=== PATIENT | male | born 1960 | race Caucasian/White ===

== ENCOUNTER → 2018-07-23 14:11 | Outpatient (CLI) | payer OTHER, SELFPAY ==
[2018-07-23 14:54] LABS: PSA,Total - Annual Screen 1.64 ng/mL (0.00-4.00)
== END ==
PROVIDERS: Referring Provider Urology; Visit Provider Urology
DX: Z12.5 Encounter for screening for malignant neoplasm of prostate (principal)
CPT/HCPCS: 36415; 84153; G0103

== ENCOUNTER → 2019-09-30 09:10 | Outpatient (CLI) | payer OTHER, SELFPAY ==
[2017-02-15 12:48] VITALS: BMI 34.9
[2019-09-30 10:54] LABS: ALB/GLOB Ratio 1.1 RATIO (0.9-2.4); AST(SGOT) 22 U/L (15-37); Alanine Aminotransfer ALT/SGPT 36 U/L (16-61); Albumin, Serum 3.9 g/dL (3.2-5.0); Alkaline Phosphatase 98 U/L (45-117); Anion Gap 4 (5-15); BUN 24 mg/dL (7-18); BUN/Creat Ratio 19.4 RATIO (10-20); Calcium,Total 8.6 mg/dL (8.5-10.1); Chloride 106 mmol/L (98-107); Creatinine, Serum 1.24 mg/dL (0.70-1.30); EST Glomerular Filtration Rate 64 mL/min (>60); Est Glom Filt Rate - Afr Amer 77 mL/min (>60); Globulin 3.5 g/dL (2.2-4.2); Glucose 85 mg/dL (74-106); PSA,Total- Diagnostic 0.69 ng/mL (0.0-4.0); Potassium 4.1 mmol/L (3.5-5.1); Protein, Total 7.4 g/dL (6.4-8.2); Sodium Level 136 mmol/L (136-145)
== END ==
PROVIDERS: Referring Provider Urology; Visit Provider Urology
DX: N40.1 Benign prostatic hyperplasia with lower urinary tract symptoms (principal)
CPT/HCPCS: 36415; 80053; 84153; 84403

== ENCOUNTER → 2020-11-30 09:00 | Outpatient (CLI) | payer OTHER, SELFPAY ==
[2017-02-15 12:48] VITALS: BMI 34.9
[2020-11-30 09:48] LABS: PSA,Total - Annual Screen 0.77 ng/mL (0.00-4.00)
== END ==
PROVIDERS: Referring Provider Urology; Visit Provider Urology
DX: Z12.5 Encounter for screening for malignant neoplasm of prostate (principal)
CPT/HCPCS: 36415; 84153; G0103

== ENCOUNTER → 2021-02-08 16:50 | Outpatient (CLI) | payer OTHER, SELFPAY ==
[2017-02-15 12:48] VITALS: BMI 34.9
[2021-02-08 17:30] LABS: Absolute Lymphocyte Count 2.43 X10^3/uL (0.83-4.51); Absolute Neutrophil Count 4.3 X10^3/uL (2.0-7.7); Basophil# 0.12 X10^3/uL; Basophil% 1.5 % (0-1); Eosinophil# 0.23 X10^3/uL; Eosinophils% 2.9 % (0-5); Hematocrit 53.4 % (40-54); Hemoglobin 17.7 g/dL (13.0-16.5); Lymphocyte # 2.43 X10^3/ul (0.83-4.51); Lymphocyte % 30.5 % (19-41); Mean Corp Hgb Conc 33.1 g/dL (32-36); Mean Corpuscular Hgb 29.9 pg (27.0-32.0); Mean Corpuscular Volume 90.4 fL (80-94); Mean Platelet Vol. 11.1 fl (6.2-12.0); Monocyte# 0.86 X10^3/uL; Monocyte% 10.8 % (0-10); NRBC Flagged by Analyzer 0 % (0-5); Neutrophil # 4.32 X10^3/uL (2.7-7.7); Platelet Count 174 K/mm3 (150-450); RBC Distribution Width CV 13.9 % (11.6-14.6); RBC Distribution Width SD 46.5 fl (35.1-43.9); Red Blood Count 5.91 M/mm3 (4.6-6.2)
[2021-02-08 18:20] LABS: ALB/GLOB Ratio 1.2 RATIO (0.9-2.4); AST(SGOT) 12 U/L (15-37); Alanine Aminotransfer ALT/SGPT 16 U/L (16-61); Albumin, Serum 3.7 g/dL (3.2-5.0); Alkaline Phosphatase 105 U/L (45-117); Anion Gap 2 (5-15); BUN 23 mg/dL (7-18); BUN/Creat Ratio 16.9 RATIO (10-20); Chloride 106 mmol/L (98-107); Creatinine, Serum 1.36 mg/dL (0.70-1.30); EST Glomerular Filtration Rate 57 mL/min (>60); Est Glom Filt Rate - Afr Amer 69 mL/min (>60); Globulin 3.2 g/dL (2.2-4.2); Glucose 84 mg/dL (74-106); Potassium 4.1 mmol/L (3.5-5.1); Protein, Total 6.9 g/dL (6.4-8.2); Sodium Level 138 mmol/L (136-145)
== END ==
PROVIDERS: PCP Nurse Practitioner; Referring Provider Nurse Practitioner; Visit Provider Nurse Practitioner
DX: M25.50 Pain in unspecified joint (principal); D75.1 Secondary polycythemia
CPT/HCPCS: 36415; 80053; 85025

== ENCOUNTER 2021-07-09 11:45 | Emergency (ER) | payer OTHER, SELFPAY ==
[2021-07-09 11:46] VITALS: BP 119/81; PULSE 65; RESP 18; TEMP 36.8; O2SAT 94; BMI 32.5
[2021-07-09 11:59] LABS: Bacteria 0 SEEN /hpf (None Seen); Mucous, Urine 0 SEEN /hpf (<or=2+); Red Blood Cells-Urine 0 SEEN /hpf (0-5)
[2021-07-09 12:08] LABS: Color, Urine Yellow (Yellow); Glucose, Dipstick Normal (Normal); Ketone-Dipstick 15 mg/dl (Negative); Leukocyte Esterase-Dipstick 25 /ul (Negative); Nitrite-Dipstick Negative (Negative); Occult Blood-Urine Negative /ul (Negative); Protein-Dipstick 15 mg/dl (Negative); Specific Gravity, Urine 1.025 (1.002-1.030); Urine Clarity Sl. Cloudy (Clear); Urine Urobilinogen 4 mg/dl (Normal)
[2021-07-09 12:11] LABS: Urine Bilirubin Dipstick 1 mg/dL (Negative)
[2021-07-09 12:19] LABS: Squamous Epithelial Cells - UA 0-5 SEEN /hpf (0-5); White Blood Cells 0-5 SEEN /hpf (0-5)
--- NOTE | 2021-07-09 13:42 | CT_ITS ---
STUDY: CT ABDOMEN AND PELVIS WITHOUT CONTRAST REASON FOR EXAM: Male, 60 years old. Right flank pain and left groin pain. History of kidney stones. RADIATION DOSAGE (If Supplied By Facility): CTDIvol = ( 16.88 ) mGy, DLP = ( 814.82 ) mGycm TECHNIQUE: Transaxial images were obtained from the dome of the diaphragm to the symphysis pubis without oral contrast, and without intravenous contrast. Sagittal and coronal images were reconstructed. Individualized dose optimization techniques were used for this CT. COMPARISON: Comparison is made with prior study dated 02/13/2017. FINDINGS: The visualized lung bases are unremarkable. The visualized portions of the heart are within normal limits. Normal liver. Normal gallbladder and extrahepatic biliary system. Normal spleen. Normal pancreas. Normal bilateral adrenal glands. There is a 1.8 cm cyst in the posterior medial aspect of the lower pole of the right kidney. There is also evidence of a one sinus cyst in the anterior medial aspect of the lower pole of the right kidney. Normal left kidney. Normal visualized stomach. Normal small intestine. There are scattered colonic diverticula consistent with diverticulosis. The appendix is visualized and appears normal. There is scattered atherosclerotic calcification of the abdominal aorta, without a demonstrated aneurysm. Normal inferior vena cava. Normal retroperitoneum. Normal urinary bladder. There are prostatic calcifications. Small bilateral inguinal hernias containing fat. There are degenerative changes of the visualized lumbar spine. CT/Abdomen/Pelvis without Cont IMPRESSION: Small cysts in the right kidney. No obstructive uropathy is seen. Electronically Signed: Nicolas Cooper MD at 14:29 EDT , Service support ,
--- NOTE | 2021-07-09 13:42 | EX.ED.DYSGE1 ---
HPI History of Present Illness Chief Complaint: Flank Pain Narrative Narrative: 60-year-old male presenting with right flank pain. He states this started on Monday. He denies recent injury. He has history of previous kidney stones which has felt similar in the past. He denies urinary complaints. Denies fever. Denies other complaints. Prior similar symptoms: Yes Recent Illness/Hospitalization: No PFSH PFSH Medical History (Updated 07/09/21 @ 14:[address] Alondra Sexton MD) Acid reflux Enlarged prostate Hx of renal calculi Osteoarthritis Home Medications esomeprazole magnesium [Nexium] 20 mg PO DAILY 02/13/17 [History Last Taken 02/15/17 08:00] tamsulosin 0.4 mg PO DAILY 14 Days capsule 02/13/17 [Rx Last Taken Unknown] meloxicam 15 mg PO DAILY 07/09/21 [History Last Taken Unknown] Allergy/AdvReac Type Severity Reaction Status Date / Time latex Allergy Hives Verified 07/09/21 11:46 Surgical History (Updated 07/09/21 @ 13:18 by Sangeeta Caldera) History of repair of ACL Social History Smoking Status: Current every day smoker tobacco type: cigarettes ROS ROS ED Constitutional Constitutional ED: Denies fever(s) Eyes Eyes: Denies change in vision ENT ENT ED: Denies rhinorrhea or sore throat Cardiovascular Cardiovascular: Denies chest pain or palpitations Respiratory/Chest Respiratory/Chest: Denies cough or dyspnea Gastrointestinal Gastrointestinal: Denies abdominal pain, diarrhea, nausea or vomiting Genitourinary Genitourinary ED: Denies dysuria or hematuria Musculoskeletal Musculoskeletal: Reports back pain; Denies myalgias Integumentary Denies rash Neurologic Neurologic: Denies headache(s) Psychiatric Psychiatric: Denies suicidal thoughts EXAM Physical Exam Const Vital Signs: 07/09/21 11:46 07/09/21 13:16 07/09/21 13:45 Temperature 98.2 F Temperature Source Temporal Pulse Rate 65 Respiratory Rate 18 16 Respiratory Effort Normal Non-Labored Respiratory Pattern Normal Blood Pressure 119/81 H Blood Pressure Mean 93 Pulse Ox 94 Oxygen Delivery Method Room Air Positive well nourished and well developed General Appearance ED: well developed HEENT Reports normocephalic and head/scalp atraumatic Eyes PERRL and EOMs intact bilaterally Neck supple General: Negative for tenderness Chest Wall inspection of chest normal Resp normal respiratory effort and clear to auscultation bilaterally Cardio regular rate and regular rhythm GI non-tender and non-distended Palpation: soft; Negative for guarding or rebound tenderness present no CVA tenderness Back/Spine General Back: CVA tenderness right Extremity normal to inspection Neuro oriented x3 Sensorium / Orientation: alert Psych mental status grossly normal Skin no rashes or lesions noted MDM MDM MDM Narrative Medical decision making narrative: Patient declined pain medication. Urinalysis shows 0-5 white blood cells, [address] abdomen pelvis shows small cysts in the right kidney, no obstructive uropathy is seen. On reevaluation, patient is resting comfortably and is requesting discharge home. Patient will follow up with his urologist. Advised return to ED for worsening complaints. Lab Data Attestation: I reviewed the patient's lab results. Labs: Laboratory Results - last 24 hr 07/09/21 11:55 Urine Color Yellow Urine Clarity Sl. Cloudy Urine pH 5.0 Ur Specific Arnot 1.025 Urine Protein 15 H Urine Glucose (UA) Normal Urine Ketones 15 H Urine Occult Blood Negative Urine Nitrite Negative Urine Bilirubin 1 H Urine Urobilinogen 4 H Ur Leukocyte Esterase 25 H Urine RBC 0 SEEN Urine WBC 0-5 SEEN Ur Squamous Epith Cells 0-5 SEEN Urine Bacteria 0 SEEN Urine Mucus 0 SEEN Radiography Diagnostic Testing: Clinical Impression(s) from Imaging Studies Abdomen/Pelvis CT 07/09/21 13:42 IMPRESSION: Small cysts in the right kidney. No obstructive uropathy is seen. Electronically Signed: Nicolas Cooper MD at 14:29 EDT , Service support , Discharge Plan Triage Chief Complaint: Flank Pain ED Provider: Alondra Sexton Dx/Rx/DC Orders Clinical Impression: Acute flank pain Instructions: ED Flank Pain, Uncertain Cause Prescriptions: No Action esomeprazole magnesium [Nexium] 40 MG capsule 20 mg PO DAILY RF: 0 tamsulosin 0.4 MG capsule 0.4 mg PO DAILY 14 Days RF: 0 meloxicam 15 mg tablet 15 mg PO DAILY RF: 0 Primary Care Provider: Brittani Cortes NP Referrals: Yoseph Lindsay MD [STAFF PHYSICIAN] - Brittani Cortes NP, [facility] [Primary Care Provider] - Disposition Disposition: Home, Self Care
[2021-07-09 13:45] VITALS: RESP 16
[2021-07-09 15:06] VITALS: PULSE 87; RESP 18; O2SAT 96
== END 2021-07-09 15:07 | disposition home or self-care (01) ==
PROVIDERS: Emergency Provider Emergency Medicine; PCP Nurse Practitioner
DX: R10.9 Unspecified abdominal pain (principal); M54.9 Dorsalgia, unspecified; M19.90 Unspecified osteoarthritis, unspecified site; N40.0 Benign prostatic hyperplasia without lower urinary tract symptoms; K21.9 Gastro-esophageal reflux disease without esophagitis; F17.210 Nicotine dependence, cigarettes, uncomplicated; Z79.1 Long term (current) use of non-steroidal anti-inflammatories (NSAID); Z79.899 Other long term (current) drug therapy; Z87.442 Personal history of urinary calculi
CPT/HCPCS: 74176; 81001; 99283

== ENCOUNTER 2021-12-27 09:04 | Outpatient (CLI) | payer OTHER, SELFPAY ==
[2021-12-27 10:52] LABS: PSA,Total - Annual Screen 0.75 ng/mL (0.00-4.00)
== END 2021-12-27 23:59 | disposition home or self-care (01) ==
LOC: LAB 09:05
PROVIDERS: PCP Nurse Practitioner; Referring Provider Urology; Visit Provider Urology
DX: Z12.5 Encounter for screening for malignant neoplasm of prostate (principal)
CPT/HCPCS: 36415; 84153; G0103

== ENCOUNTER 2022-01-12 11:56 | Outpatient (CLI) | payer OTHER, SELFPAY ==
[2022-01-12 07:50] VITALS: BP 137/80; PULSE 67; RESP 18; TEMP 36.5; O2SAT 98; BMI 31.9
--- NOTE | 2022-01-12 11:59 | CT_ITS ---
STUDY: CT LUMBAR SPINE WITH CONTRAST REASON FOR EXAM: Male, 61 years old. [facility] RADIATION DOSAGE (If Supplied By Facility): CTDIvol = ( 18.14 ) mGy, DLP = ( 604.07 ) mGycm TECHNIQUE: The patient was scanned in a multi detector CT scanner. High resolution transaxial imaging was performed following the intravenous administration of 12 ML ISOVUE 200. Images were obtained throughout the lumbar spine. Sagittal and coronal images were reconstructed. Individualized dose optimization techniques were used for this CT. COMPARISON: Lumbar spine x-ray obtained on 01/12/2022 FINDINGS: Unremarkable alignment of the columns of the lumbar spine is visualized. No evidence of spondylolisthesis is seen. Lumbar vertebral bodies demonstrate no evidence of compression deformity, multilevel degenerative endplate changes visualized most prominent involving the inferior endplate of the L1 vertebral body. Unremarkable opacification of the thecal sac is seen, no evidence of contrast extravasation outside the contours of the thecal sac. Multiple air bubbles visualized within the thecal sac most likely iatrogenic from the contrast injection. Limited evaluation of the abdominal soft tissues is unremarkable. The terminal cord demonstrates unremarkable contours, the cord terminates at the level of the T12-L1 intervertebral disc space, no evidence of masses or abnormal attenuation seen. The terminal nerve fibers demonstrate unremarkable contours, no evidence of thickening or clumping of the nerve roots is seen. L1-2: Degenerative intervertebral disc with mild hypertrophic changes of the facet joints is seen, mild narrowing of the spinal canal, mild to moderate narrowing of the right neural foramina and severe narrowing of the left neuroforamina seen at this level. L2-3: Circumferential disc bulges hypertrophic changes in the facet joints and ligamentum flavum visualized at this level, mild narrowing of the spinal canal with moderate to severe narrowing of the right neural foramina and severe narrowing of the left neuroforamina seen at this level. L3-4: Circumferential disc bulge with hypertrophic changes in the facet joints and ligamentum flavum visualized at this level, moderate narrowing of the spinal canal with moderate to severe narrowing of the right neural foramina and moderate to severe narrowing of the left neuroforamina seen at this level. L4-5: Circumferential disc bulge with hypertrophic changes in the facet joints and ligamentum flavum visualized at this level, moderate narrowing of the spinal canal with severe narrowing of the right neural foramina and severe narrowing of the left neuroforamina seen at this level. L5-S1: Circumferential disc bulge with hypertrophic changes in the facet joints and ligamentum flavum visualized at this level, mild narrowing of the spinal canal with severe narrowing of the right neural foramina and severe narrowing of the left neuroforamina seen at this level. Normal visualized paraspinous soft tissue structures. CT/Spine Lumbar WITH Contrast IMPRESSION: Degenerative changes of the lumbar spine visualized, multilevel degenerative intervertebral disc disease visualized, with narrowing of the spinal canal most prominent at L4-L5 and L3-L4 and narrowing of the neural foramina visualized at multiple levels. Electronically Signed: Will Morataya MD at 14:26 EDT ,
--- NOTE | 2022-01-12 12:15 | RAD_ITS ---
FLUOROSCOPICALLY GUIDED LUMBAR MYELOGRAM HISTORY: The patient is a 61 years year old Male who presented with low back pain. CONSENT: Risks, benefits, treatment options, potential complications and personnel to be involved were discussed (including the risks of radiation exposure, contrast and anesthesia administration, and any equipment needed for the procedure to ensure best possible outcome) with the patient and all questions were answered and consent was obtained prior to procedure. MEDICATION RECONCILIATION: The patient''s medications and allergies were reviewed in the electronic medical record and reconciled to the proposed procedure/treatment. TIME OUT: An audible time out was performed immediately prior to the start of the procedure with the entire procedure team to confirm the patient''s identity (name, medical record number), anatomy (including marking of site and side), type of procedure to be performed, patient position, procedure consent form, relevant diagnostic and radiology test results, antibiotic administration, safety precautions, and procedure-specific equipment was present. ANESTHESIA: Local anesthesia: 1% Lidocaine was administered. IMAGE GUIDANCE: Fluoroscopic and sonographic guidance was used. Ultrasound demonstrated patency of the target vein without filling defects. Access was obtained under direct sonographic visualization. A sonographic image of the vessel was obtained and placed into the permanent archive for documentation. FLUOROSCOPIC RADIATION SUMMARY: 10 images were obtained. Dose Area Product (DAP): Fluoro Time: 2:38 minutes Radiation dose exceed 5 Gy: No If radiation dose exceeded 5 Gy, was counseling and instructional brochure provided:N/A POSITIONING: The patient was placed prone on the fluoroscopy table. The paraspinal region was then prepped and draped in the usual sterile fashion. PROCEDURE DETAILS: Counting reference: Lumbosacral junction. For the purposes of this report, L5-S1 is considered the last lumbar type disc space and L4-5 is considered the level of the iliac crest. Access Site: 22 gauge spinal needle from a Right paramedian approach at the L2-L3 Level. Procedure Details: Using sterile procedure, local anesthesia was introduced to the skin and subcutaneous tissues as outlined above. Under fluoroscopic guidance, the needle was carefully advanced into the lumbar subarachnoid space resulting in free flow of CSF. 12 cc of ISOVUE-200 were instilled into the thecal sac after which the needle was removed, manual compression was applied after which a sterile dressing was applied. Fluoroscopic images of the opacified thecal sac were obtained in multiple projections after which the patient was sent to the CT scan suite for a CT myelogram. The patient tolerated the procedure well with no immediate complications. RAD/Lumbar Myelogram IMPRESSION: Lumbar myelogram under fluoroscopy. Electronically Signed: Will Morataya MD at 14:10 EDT ,
[2022-01-12] MEDS: Lidocaine 2% (5ml sdv) 5 ML VIAL.MPF INFILT (13:09)
[2022-01-12 13:25] VITALS: BP 132/85; PULSE 64; RESP 18; O2SAT 98
[2022-01-12 14:00] VITALS: BP 134/89; PULSE 65; RESP 16; O2SAT 98
== END 2022-01-12 23:59 | disposition home or self-care (01) ==
LOC: RAD 11:56
PROVIDERS: PCP Nurse Practitioner; Referring Provider Orthopaedic Surgery; Visit Provider Orthopaedic Surgery
DX: M48.061 Spinal stenosis, lumbar region without neurogenic claudication (principal); M47.816 Spondylosis without myelopathy or radiculopathy, lumbar region; M51.36 Other intervertebral disc degeneration, lumbar region
CPT/HCPCS: 62304; 72132; Q9965

== ENCOUNTER → 2022-08-15 | Outpatient (CLI) | payer OTHER, SELFPAY ==
[2022-08-15 12:21] LABS: Absolute Lymphocyte Count 1.56 X10^3/uL (0.83-4.51); Absolute Neutrophil Count 3.1 X10^3/uL (2.0-7.7); Basophil# 0.09 X10^3/uL; Basophil% 1.6 % (0-1); Eosinophil# 0.12 X10^3/uL; Eosinophils% 2.1 % (0-5); Hemoglobin 17.7 g/dL (13.0-16.5); Lymphocyte # 1.56 X10^3/ul (0.83-4.51); Lymphocyte % 27.9 % (19-41); Mean Corp Hgb Conc 33.4 g/dL (32-36); Mean Corpuscular Hgb 30.8 pg (27.0-32.0); Mean Corpuscular Volume 92.2 fL (80-94); Monocyte# 0.67 X10^3/uL; NRBC Flagged by Analyzer 0 % (0-5); Neutrophil # 3.14 X10^3/uL (2.7-7.7); Neutrophil % 56.2 % (47-70); Platelet Count 155 K/mm3 (150-450); RBC Distribution Width CV 13.4 % (11.6-14.6); RBC Distribution Width SD 45.7 fl (35.1-43.9); Red Blood Count 5.75 M/mm3 (4.6-6.2); White Blood Count 5.6 K/mm3 (4.4-11.0)
[2022-08-15 12:44] LABS: ALB/GLOB Ratio 1.2 RATIO (0.9-2.4); AST(SGOT) 15 U/L (15-37); Alanine Aminotransfer ALT/SGPT 21 U/L (16-61); Albumin, Serum 3.7 g/dL (3.2-5.0); Alkaline Phosphatase 78 U/L (45-117); Anion Gap 7 (5-15); BUN 20 mg/dL (7-18); BUN/Creat Ratio 21.1 RATIO (10-20); Calcium,Total 8.6 mg/dL (8.5-10.1); Chloride 103 mmol/L (98-107); Cholesterol 136 mg/dL (200); Creatinine, Serum 0.95 mg/dL (0.70-1.30); EST Glomerular Filtration Rate 86 mL/min (>60); Est Glom Filt Rate - Afr Amer 104 mL/min (>60); Globulin 3.2 g/dL (2.2-4.2); Glucose 89 mg/dL (74-106); High Density Lipoprotein 45 mg/dL; Potassium 4.2 mmol/L (3.5-5.1); Protein, Total 6.9 g/dL (6.4-8.2); Sodium Level 137 mmol/L (136-145); Triglycerides 59 mg/dL; Very Low Density Lipoprotein 12 mg/dL (5-40)
== END | disposition home or self-care (01) ==
LOC: BIMLAB 09:35
PROVIDERS: PCP Nurse Practitioner; Visit Provider Internal Medicine
DX: N40.0 Benign prostatic hyperplasia without lower urinary tract symptoms (principal); Z13.6 Encounter for screening for cardiovascular disorders
CPT/HCPCS: 36415; 80053; 80061; 85025

== ENCOUNTER 2022-09-12 15:12 | Emergency (ER) | payer OTHER, SELFPAY ==
[2022-09-12 15:14] VITALS: BP 138/86; PULSE 79; RESP 18; TEMP 37.2; O2SAT 99; BMI 30.5
--- NOTE | 2022-09-12 15:50 | RAD_ITS ---
INDICATION: COUGH EXAMINATION/TECHNIQUE: X-RAY - XR Chest 1 View COMPARISON: None. FINDINGS: LINES/DEVICES: None. LUNGS: Mild coarsening of lung markings in the lower lobes possibly inflammatory. No focal infiltration.. No pneumothorax. MEDIASTINUM AND CARDIOVASCULAR STRUCTURES: Cardiac silhouette not enlarged. Central airways and mediastinal contour are unremarkable. BONES AND SOFT TISSUES: Unremarkable. RAD/Chest 1 View (Portable) IMPRESSION: Mild coarsening of interstitial markings in the lower lobes possibly inflammatory. No focal infiltrates. Electronically Signed: Scot Gutierrez MD at 16:18 EST ,
[2022-09-12 16:06] VITALS: BP 128/86; PULSE 73; RESP 22; O2SAT 96
--- NOTE | 2022-09-12 16:19 | ED.VIS.DYS ---
HPI History of Present Illness Chief Complaint: Cold Sx Narrative Narrative: 62-year-old smoker, history of chronic low back pain states he has been sick for 3 weeks. He was diagnosed with COVID-19 a week ago Monday. He states he finished 5 days of steroids but still has shortness of breath, fatigue, myalgias and arthralgias. He has low back pain with this also. He continues to smoke cigarettes although he states he only smoked 2 cigarettes today. He had mild nausea and vomiting. He presents because he feels fatigued, tired, and short of breath. [facility] Medical History Acid reflux Chronic pain COVID-19 Enlarged prostate History of back problems History of neuropathy Hx of carpal tunnel syndrome Hx of renal calculi Osteoarthritis Smoker Wears glasses Home Medications esomeprazole magnesium 40 mg capsule,delayed release (Nexium) 20 mg PO DAILY 02/13/17 [History Last Taken 02/15/17 08:00] tamsulosin 0.4 mg capsule 0.4 mg PO DAILY 14 days 02/13/17 [Rx Last Taken Unknown] aspirin 81 mg capsule 81 mg PO DAILY 01/12/22 [History Last Taken Unknown] clobetasol 0.05 % topical ointment 1 applic topical BID #15 grams 08/15/22 [Rx Last Taken Unknown] meloxicam 15 mg tablet 15 mg PO DAILY #30 tabs 08/15/22 [Rx Last Taken Unknown] benzonatate 200 mg capsule 200 mg PO TID PRN cough #30 caps 09/05/22 [Rx Last Taken Unknown] dexamethasone 6 mg tablet 6 mg PO DAILY #5 tabs 09/05/22 [Rx Last Taken Unknown] Allergy/AdvReac Type Severity Reaction Status Date / Time latex Allergy Hives Verified 09/12/22 15:16 Family History Grandfather Diabetes Brother Diabetes Brother Kidney disease Surgical History H/O lithotripsy History of knee surgery History of myelography History of repair of ACL History of tonsillectomy History of tooth extraction Social History household members: significant other current occupational status: employed current occupation: owns semi-trucks Smoking Status: Current every day smoker tobacco type: cigarettes Electronic Cigarette Use: not used alcohol intake: current alcohol intake frequency: holidays/special occasions only substance use type: does not use and former substance user Date of last use: marijuana as a teenager do you feel safe at home: Yes ROS ROS ED ROS Narrative Constitutional: No fever currently, no chills. Positive malaise and fatigue. HEENT: No sore throat. No neck pain. No loss of vision. No rhinorrhea. Cardiovascular: No chest pain. No palpitations. No pedal edema. Respiratory: Positive cough, positive shortness of breath. Abdominal: No abdominal pain. Positive nausea and vomiting-resolved Genitourinary: No dysuria. No hematuria. Musculoskeletal: Multiple myalgias and arthralgias especially low back pain with history of chronic. Neurologic: No headaches. No dizziness. No lightheadedness. Skin: No rash. No change in color. Psychiatric: No depression. No anxiety. EXAM Physical Exam Narrative Exam Narrative: Afebrile. Vital signs noted. HEENT: Normocephalic. Atraumatic. PERRL, EOMI. Neck soft and supple. No point tenderness or step off. Cardiovascular: Regular rate and rhythm. No murmurs, rubs, or gallops appreciated. Respiratory: No tachypnea. Bilateral rhonchi diffusely. No distress. No accessory muscle use. Speaking in full sentences. Gastrointestinal: Abdomen soft, nontender, with normoactive bowel sounds. No rebound or guarding. Neurological: Awake. Alert. Nonfocal, nonlateralizing. Skin: No rash. Normal color. No pallor. Musculoskeletal: No pedal edema. Full range of motion extremities. Const Vital Signs: 09/12/22 15:14 09/12/22 16:04 09/12/22 16:06 Temperature 98.9 F Temperature Source Temporal Pulse Rate 79 73 Respiratory Rate 18 22 H Respiratory Effort Normal Short of Breath Labored Respiratory Depth Shallow Respiratory Pattern Normal Blood Pressure 138/86 H 128/86 H Blood Pressure Mean 103 100 Pulse Ox 99 96 Oxygen Delivery Method Room Air Room Air MDM MDM MDM Narrative Medical decision making narrative: Nursing protocol was entered. Chest x-ray was obtained and interpreted by myself. There is increase of interstitial markings but no evidence of a consolidation or pneumothorax. His pulse ox is 96 to 99% on room air. I reviewed his medication list and he had finished dexamethasone. I discussed smoking cessation with him but he states he has no plans on quitting smoking. I will write him a prescription for a prednisone burst for another week and a prescription for an albuterol MDI. Treatment will be symptomatic. His COVID and influenza swabs are pending, but regardless, I do feel that this may be more residual COVID. Additionally, even if it were influenza A he is outside the window for any Tamiflu or Relenza. I was informed by the RN that while I was with another patient performing a procedure, patient had eloped prior to the results of his respiratory swab. Disposition is eloped from emergency department. Patient was in stable condition. Radiography Diagnostic Testing: Clinical Impression(s) from Imaging Studies Chest X-Ray 09/12/22 15:50 IMPRESSION: Mild coarsening of interstitial markings in the lower lobes possibly inflammatory. No focal infiltrates. Electronically Signed: Scot Gutierrez MD at 16:18 EST Reading Location ID and State: [facility] / [place] , Service support , Discharge Plan Triage Chief Complaint: Cold Sx Other Complaint: Fatigue ED Provider: Fidencio Mercado Dx/Rx/DC Orders Clinical Impression: COVID-19, Smoker Instructions: Coronavirus Disease 2019 (COVID-19): Caring for Yourself or Others, ED Bronchitis, No Antibiotic (Adult) Prescriptions: No Action meloxicam 15 mg tablet 15 mg PO DAILY Qty: 30 0RF clobetasol 0.05 % ointment 1 applic topical BID Qty: 15 0RF benzonatate 200 mg capsule 200 mg PO TID PRN (Reason: cough) Qty: 30 0RF dexamethasone 6 mg tablet 6 mg PO DAILY Qty: 5 0RF esomeprazole magnesium [Nexium] 40 MG capsule 20 mg PO DAILY Label Comments: HEARTBURN tamsulosin 0.4 MG capsule 0.4 mg PO DAILY 14 Days 0RF Label Comments: URINE FLOW aspirin 81 mg Capsule 81 mg PO DAILY Primary Care Provider: Carla Moran Referrals: Carla Moran MD [Primary Care Provider] - Disposition Disposition: Elopement Discharge Date/Time: 09/12/22 17:31
--- NOTE | 2022-09-12 17:26 | ED.RN ---
PATIENTS S.O IN HALLWAY ASKING FOR DISCHARGE PAPERWORK, MEDICATION TO BE SENT TO PHARMACY OR THE PATIENT WILL WALK OUT. DR. COOPER NOTIFIED.
--- NOTE | 2022-09-12 17:31 | ED.RN ---
PATIENT HAS WALKED OUT. DR. COOPER NOTIFIED
== END 2022-09-12 17:31 | disposition left against medical advice (07) ==
LOC: ED 16:47
PROVIDERS: Emergency Provider Emergency Medicine; PCP Internal Medicine; Visit Provider Emergency Medicine
DX: R11.2 Nausea with vomiting, unspecified (principal); R06.02 Shortness of breath; R53.83 Other fatigue; F17.210 Nicotine dependence, cigarettes, uncomplicated; Z86.16 Personal history of COVID-19
CPT/HCPCS: 71045; 87428; 99282

== ENCOUNTER → 2023-01-09 | Outpatient (CLI) | payer OTHER, SELFPAY ==
[2023-01-09 10:19] LABS: PSA,Total - Annual Screen 0.71 ng/mL (0.00-4.00)
== END | disposition home or self-care (01) ==
LOC: LAB 09:27
PROVIDERS: PCP Internal Medicine; Referring Provider Registered Nurse; Visit Provider Registered Nurse
DX: Z12.5 Encounter for screening for malignant neoplasm of prostate (principal)
CPT/HCPCS: 36415; 84153; G0103

== ENCOUNTER 2023-01-14 10:16 | Emergency (ER) | payer OTHER, SELFPAY ==
[2023-01-14 10:17] VITALS: BP 148/86; PULSE 79; RESP 15; TEMP 36.3; O2SAT 95; BMI 30.5
--- NOTE | 2023-01-14 11:02 | ED.VIS.LOWEX ---
HPI <DELVIN Duque - Last Filed: 01/14/23 20:36> History of Present Illness Chief Complaint: Lower Extremity Injury Narrative Narrative: Patient presenting today with lower back pain and bilateral lower extremity pain that has progressively worsened over the past year. Patient states that he has had chronic lower back pain and sciatica since 1983. 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 He is worried that he has a blood clot in his calves bilaterally and that is why he has this pain. He denies any history of blood clots. Patient was told 1 year ago by his orthopedic doctor that he needed to have surgery on his back due to defective discs and lumbar spine, arthritis, and sciatica. Patient is unable to have the surgery performed or go to due to his work. He denies any fever, bowel/bladder incontinence, saddle paresthesia, numbness/tingling in his lower extremities. PFS <DELVIN Duque - Last Filed: 01/14/23 20:36> [facility], [facility] Medical History Acid reflux Chronic pain COVID-19 Enlarged prostate History of back problems History of neuropathy Hx of carpal tunnel syndrome Hx of renal calculi Osteoarthritis Smoker Wears glasses Home Medications esomeprazole magnesium 40 mg capsule,delayed release (Nexium) 20 mg PO DAILY 02/13/17 [History Last Taken 02/15/17 08:00] tamsulosin 0.4 mg capsule 0.4 mg PO DAILY 14 days 02/13/17 [Rx Last Taken Unknown] aspirin 81 mg capsule 81 mg PO DAILY 01/12/22 [History Last Taken Unknown] clobetasol 0.05 % topical ointment 1 applic topical BID #15 grams 08/15/22 [Rx Last Taken Unknown] meloxicam 15 mg tablet 15 mg PO DAILY #30 tabs 10/10/22 [Rx Last Taken Unknown] amitriptyline 25 mg tablet 25 mg PO QHS #30 tabs 11/21/22 [Rx Last Taken Unknown] prednisone 20 mg tablet 40 mg PO DAILY 10 days #20 tabs 01/14/23 [Rx Last Taken Unknown] Allergy/AdvReac Type Severity Reaction Status Date / Time latex Allergy Hives Verified 01/14/23 10:19 Family History Grandfather Diabetes Brother Diabetes Brother Kidney disease Surgical History H/O lithotripsy History of knee surgery History of myelography History of repair of ACL History of tonsillectomy History of tooth extraction Social History household members: significant other current occupational status: employed current occupation: owns [employer] Smoking Status: Current every day smoker tobacco type: cigarettes Electronic Cigarette Use: not used alcohol intake: current alcohol intake frequency: holidays/special occasions only substance use type: does not use and former substance user Date of last use: marijuana as a teenager do you feel safe at home: Yes ROS <DELVIN Duque - Last Filed: 01/14/23 20:36> ROS ED Constitutional Constitutional ED: Denies chills or fever(s) Eyes Eyes: Denies blurry vision Cardiovascular Cardiovascular: Denies chest pain or palpitations Respiratory/Chest Respiratory/Chest: Denies cough or dyspnea Gastrointestinal Gastrointestinal: Denies abdominal pain, nausea or vomiting Genitourinary Genitourinary ED: Denies dysuria, hematuria or urinary urgency Musculoskeletal Musculoskeletal: Reports arthralgias, back pain and myalgias Integumentary Denies abscess, Abrasions or rash Neurologic Neurologic: Denies paresthesias or weakness Psychiatric Psychiatric: Denies anxiety, depression, suicidal ideation or suicidal thoughts EXAM <DELVIN Duque - Last Filed: 01/14/23 20:36> Physical Exam Const Vital Signs: 01/14/23 10:17 Temperature 97.4 F L Temperature Source Temporal Pulse Rate 79 Respiratory Rate 15 Blood Pressure 148/86 H Blood Pressure Mean 106 Pulse Ox 95 Oxygen Delivery Method Room Air Positive well nourished, well developed and no apparent distress General Appearance ED: well developed HEENT Reports normocephalic and head/scalp atraumatic Mouth ED: Yes moist mucous membranes normal Eyes PERRL and EOMs intact bilaterally Neck full ROM and supple Chest Wall inspection of chest normal Resp normal respiratory effort and clear to auscultation bilaterally Cardio regular rate and regular rhythm GI soft to palpation, non-tender, non-distended and no masses Back/Spine normal ROM and normal to inspection Extremity normal to inspection and full ROM Neuro oriented x3, CN's II-XII intact bilaterally, moves all extremities, no focal motor deficits and no sensory deficits noted Sensorium / Orientation: awake and alert Motor Exam: strength 5/5 throughout Psych mental status grossly normal and thought process normal Skin no rashes or lesions noted and no wounds <Dr. Maninder Hernández MD - Last Filed: 01/14/23 11:26> Physical Exam Const Vital Signs: 01/14/23 10:17 Temperature 97.4 F L Temperature Source Temporal Pulse Rate 79 Respiratory Rate 15 Blood Pressure 148/86 H Blood Pressure Mean 106 Pulse Ox 95 Oxygen Delivery Method Room Air MDM <DELVIN Duque - Last Filed: 01/14/23 20:36> [facility] Narrative Medical decision making narrative: Patient presenting today with concerns that he has a DVT. However, patient has chronic lower back pain as well as sciatica. 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 I do not think the patient has a DVT, I think it is more likely that patient's pain is related to his back. Patient was advised to start physical therapy or to undergo surgery of his lumbar spine but is unable to do this due to his job. Patient had a CT myelogram which showed multilevel lumbar degenerative disc disease and narrowing of the spinal formula and spinal canal. He is to follow-up with his specialist again. He does not want any pain medication. He will be given prednisone. Ultimately, patient does need to undergo PT as well as undergo surgery. I have personally performed a face to face assessment of the patient and have reviewed the ELI Note. I performed a substantive portion of the visit including all aspects of the following. My zapata findings include: History is [62-year-old male with acute on chronic low back pain with radiation to his legs. Said a work-up in the past including a CT myelogram which showed multilevel lumbar degenerative disc disease and narrowing of the spinal foramina and spinal canal. He is seen Dr. Grullon of spine was discussed with him the eventual need of a lumbar surgery which the patient is trying to avoid because he works as a truck mechanic. He denies any weakness. He denies any bowel or bladder incontinence or retention. No fever or fall.] Exam is [exam is benign. Vital signs are stable afebrile. Lungs are clear. Heart regular rhythm. Abdomen soft. Back he has tenderness over his lumbar spine and his SI joints. There is no redness or warmth. No trauma. Both lower extremities are neurovascularly intact. There is no cauda equina. No saddle anesthesia. Normal medial thigh sensation. Normal dorsi and plantarflexion. Normal motor strength.] Medical Decision Making [patient has acute on chronic back pain. He does not have signs of claudication. I explained he and his he did not need ultrasound of his legs to rule out DVT. He will be started on prednisone 40 mg a day. See if that will help his back pain. He has appointment see his primary care physician. He needs to start physical therapy. And follow-up with a credit collection specialist. 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 He does not want to be placed on anything that would make it or cannot drive.] Other additions or changes: [None] <Dr. Maninder Hernández MD - Last Filed: 01/14/23 11:26> [facility] Narrative Medical decision making narrative: I have personally performed a face to face assessment of the patient and have reviewed the ELI Note. I performed a substantive portion of the visit including all aspects of the following. My zapata findings include: History is [62-year-old male with acute on chronic low back pain with radiation to his legs. Said a work-up in the past including a CT myelogram which showed multilevel lumbar degenerative disc disease and narrowing of the spinal foramina and spinal canal. He is seen Dr. Grullon of spine was discussed with him the eventual need of a lumbar surgery which the patient is trying to avoid because he works as a truck mechanic. He denies any weakness. He denies any bowel or bladder incontinence or retention. No fever or fall.] Exam is [exam is benign. Vital signs are stable afebrile. Lungs are clear. Heart regular rhythm. Abdomen soft. Back he has tenderness over his lumbar spine and his SI joints. There is no redness or warmth. No trauma. Both lower extremities are neurovascularly intact. There is no cauda equina. No saddle anesthesia. Normal medial thigh sensation. Normal dorsi and plantarflexion. Normal motor strength.] Medical Decision Making [patient has acute on chronic back pain. He does not have signs of claudication. I explained he and his he did not need ultrasound of his legs to rule out DVT. He will be started on prednisone 40 mg a day. See if that will help his back pain. He has appointment see his primary care physician. He needs to start physical therapy. And follow-up with a credit collection specialist. 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 He does not want to be placed on anything that would make it or cannot drive.] Other additions or changes: [None] Discharge Plan Triage Chief Complaint: Lower Extremity Injury ED Midlevel Provider: Tiffany Hamilton ED Provider: Maninder Hernández Dx/Rx/DC Orders Clinical Impression: Sciatica, Chronic low back pain Instructions: ED Sciatica Prescriptions: New prednisone 20 mg tablet 40 mg PO DAILY 10 Days Qty: 20 0RF No Action clobetasol 0.05 % ointment 1 applic topical BID Qty: 15 0RF meloxicam 15 mg tablet 15 mg PO DAILY Qty: 30 1RF esomeprazole magnesium [Nexium] 40 MG capsule 20 mg PO DAILY Label Comments: [facility]URN tamsulosin 0.4 MG capsule 0.4 mg PO DAILY 14 Days 0RF Label Comments: URINE FLOW aspirin 81 mg Capsule 81 mg PO DAILY amitriptyline 25 mg tablet 25 mg PO QHS Qty: 30 1RF Primary Care Provider: Carla Moran Referrals: Carla Moran MD [Primary Care Provider] - 5-7 Days Activity Restrictions/Additional Instructions: Hold the meloxicam while taking prednisone. Please follow-up with your orthopedic doctor. Disposition Disposition: Home, Self Care Discharge Date/Time: 01/14/23 11:26
== END 2023-01-14 11:26 | disposition home or self-care (01) ==
PROVIDERS: Emergency Provider Emergency Medicine; PCP Internal Medicine; Visit Provider Emergency Medicine
DX: M51.16 Intervertebral disc disorders with radiculopathy, lumbar region (principal); M48.061 Spinal stenosis, lumbar region without neurogenic claudication; G89.29 Other chronic pain; K21.9 Gastro-esophageal reflux disease without esophagitis; M19.90 Unspecified osteoarthritis, unspecified site; F17.210 Nicotine dependence, cigarettes, uncomplicated; Z79.82 Long term (current) use of aspirin; Z79.1 Long term (current) use of non-steroidal anti-inflammatories (NSAID); Z79.899 Other long term (current) drug therapy
CPT/HCPCS: 99282

== ENCOUNTER → 2023-01-30 | Outpatient (CLI) | payer OTHER, SELFPAY ==
[2023-01-30 11:04] LABS: Erythrocyte Sedimentation Rate 7 mm/hr (0-20)
[2023-01-30 11:06] LABS: Absolute Lymphocyte Count 1.78 X10^3/uL (0.83-4.51); Absolute Neutrophil Count 5.6 X10^3/uL (2.0-7.7); Basophil% 1.2 % (0-1); Eosinophil# 0.17 X10^3/uL; Hematocrit 54.3 % (40-54); Lymphocyte # 1.78 X10^3/ul (0.83-4.51); Lymphocyte % 20.7 % (19-41); Mean Corp Hgb Conc 33.3 g/dL (32-36); Mean Corpuscular Hgb 30.2 pg (27.0-32.0); Mean Corpuscular Volume 90.7 fL (80-94); Mean Platelet Vol. 11.3 fl (6.2-12.0); Monocyte# 0.86 X10^3/uL; NRBC Flagged by Analyzer 0 % (0-5); Neutrophil # 5.64 X10^3/uL (2.7-7.7); Neutrophil % 65.6 % (47-70); Platelet Count 142 K/mm3 (150-450); RBC Distribution Width CV 13.6 % (11.6-14.6); RBC Distribution Width SD 45.5 fl (35.1-43.9); Red Blood Count 5.99 M/mm3 (4.6-6.2); White Blood Count 8.6 K/mm3 (4.4-11.0)
[2023-01-30 11:09] LABS: D-Dimer Quantitative (DVT/PE) 0.32 FEU/ug/m (0.27-0.49)
[2023-01-30 11:20] LABS: Differential Indicated SCAN CRITERIA MET; Hemoglobin 18.1 g/dL (13.0-16.5)
[2023-01-30 11:41] LABS: ALB/GLOB Ratio 1.2 RATIO (0.9-2.4); AST(SGOT) 18 U/L (15-37); Alanine Aminotransfer ALT/SGPT 26 U/L (16-61); Albumin, Serum 3.6 g/dL (3.2-5.0); Alkaline Phosphatase 85 U/L (45-117); Anion Gap 6 (5-15); BUN 22 mg/dL (7-18); BUN/Creat Ratio 22.1 RATIO (10-20); CRP < 2.90 mg/L (0.0-3.0); Calcium,Total 8.6 mg/dL (8.5-10.1); Chloride 105 mmol/L (98-107); EST Glomerular Filtration Rate 81 mL/min (>60); Est Glom Filt Rate - Afr Amer 98 mL/min (>60); Globulin 3.1 g/dL (2.2-4.2); Glucose 105 mg/dL (74-106); Potassium 3.9 mmol/L (3.5-5.1); Protein, Total 6.7 g/dL (6.4-8.2); Rheumatoid Factor < 10.0 IU/mL (<15); Sodium Level 136 mmol/L (136-145)
[2023-01-31 12:09] LABS: CCP IgG Antibodies 4 units (0-19)
[2023-01-31 13:08] LABS: ANTINUCLEAR ANTIBODIES DIRECT Negative (Negative); Anti-Centromere B Ab <0.2 AI (0.0-0.9); Anti-Chromatin <0.2 AI (0.0-0.9); Anti-Jo <0.2 AI (0.0-0.9); Anti-Scleroderma-70 AB <0.2 AI (0.0-0.9); Anti-dsDNA Ab 2 IU/mL (0-9); RNP Ab <0.2 AI (0.0-0.9); SJOGREN'S Anti-SS-A test 0.3 AI (0.0-0.9); SJOGREN'S Anti-SS-B test 0.2 AI (0.0-0.9); Smith Ab <0.2 AI (0.0-0.9)
[2023-02-02 09:49] LABS: Pathologist Review Reviewed
[2023-02-05 16:07] LABS: Erythropoietin 6.2 mIU/mL (2.6-18.5)
== END | disposition home or self-care (01) ==
LOC: LAB 09:40
PROVIDERS: PCP Internal Medicine; Referring Provider Internal Medicine; Visit Provider Internal Medicine
DX: M25.50 Pain in unspecified joint (principal); D58.2 Other hemoglobinopathies; D69.6 Thrombocytopenia, unspecified
CPT/HCPCS: 36415; 80053; 81270; 82668; 85025; 85379; 85652; 86038; 86140; 86200; 86225; 86235; 86431

== ENCOUNTER → 2023-02-07 | Outpatient (CLI) | payer OTHER, SELFPAY ==
--- NOTE | 2023-02-07 17:15 | CT_ITS ---
INDICATION: progressing pain, chronic lower back pain, unable to have MRI-patient has metal in body EXAMINATION: CT lumbar SPINE - CT Spine Lumbar W/ Contrast Injection COMPARISON: 01/12/[address] A radiation dose optimization technique was used for this scan. Findings: Contrast enhanced serial CT axial images through the lumbar spine, with coronal and sagittal reformatted series. IV contrast: 98 cc Isovue-300 IV. BONES: No evidence of lumbar spine fracture or subluxation. No concerning bony lesion or abnormal sclerosis to suggest lesion. DISCS/JOINTS: Moderate to severe posterior lower lumbar degenerative change. No significant neuroforaminal narrowing. However, there is severe L4-L5 central bony spinal canal stenosis secondary to posterior disc osteophyte formation, which appears worsened from previous year. SOFT TISSUES: Simple fluid attenuating right renal lesions, likely renal cysts. CT/Spine Lumbar WITH Contrast IMPRESSION: Severe central bony spinal canal stenosis as above. Electronically Signed: Brenton Boss MD at 0:33 EDT ,
== END | disposition home or self-care (01) ==
LOC: CT 17:15
PROVIDERS: PCP Internal Medicine; Referring Provider Internal Medicine; Visit Provider Internal Medicine
DX: M54.41 Lumbago with sciatica, right side (principal); M54.42 Lumbago with sciatica, left side; G89.29 Other chronic pain
CPT/HCPCS: 72132; Q9967

== ENCOUNTER → 2023-06-13 | Outpatient (CLI) | payer OTHER, SELFPAY | END | disposition home or self-care (01) | LOC: SL 10:47 | PROVIDERS: PCP Internal Medicine; Referring Provider Internal Medicine Critical Care Medicine; Visit Provider Internal Medicine Critical Care Medicine | DX: D75.1 Secondary polycythemia (principal) | CPT/HCPCS: 94762 ==

== ENCOUNTER → 2023-06-27 | Outpatient (CLI) | payer OTHER, SELFPAY ==
[2023-06-27 09:14] VITALS: PULSE 81; PULSE 89; PULSE 90; PULSE 91; PULSE 92; PULSE 94; PULSE 95; O2SAT 94; O2SAT 95; O2SAT 96
--- NOTE | 2023-06-29 10:55 | PCM.PSN.6M ---
PSN 6 Minute Walk Test 6 Minute Walk Test 6 Minute Walk Test: 6 Minute Walk Test PSN:6-Minute Walk Test Start: 06/27/23 09:14 Freq: Status: Active Protocol: RESP.6MINW Document 06/27/23 09:14 [facility] (Rec: 06/27/23 09:20 [facility] [id number]) 6 Minute Walk Test Date Performed 06/27/23 Time Performed 08:30 Height 5 ft 10 in Weight: 216 lb Weight in Pounds 216.[address]: Darius Lindsay Assistive device used: None Pre-test Oxygen Delivery Method Room Air Pulse Ox 96 Pulse Rate (60-100) 81 1st minute Oxygen Delivery Method Room Air Pulse Ox 95 Pulse Rate (60-100) 90 Dyspnea Margo Scale (0-10) 0 Number of Rests Taken 0 2nd minute Oxygen Delivery Method Room Air Pulse Ox 95 Pulse Rate (60-100) 91 Dyspnea Margo Scale (0-10) 0 Number of Rests Taken 0 3rd minute Oxygen Delivery Method Room Air Pulse Ox 96 Pulse Rate (60-100) 92 Dyspnea Margo Scale (0-10) 0 Number of Rests Taken 0 4th minute Oxygen Delivery Method Room Air Pulse Ox 96 Pulse Rate (60-100) 89 Dyspnea Margo Scale (0-10) 0 Number of Rests Taken 0 5th minute Oxygen Delivery Method Room Air Pulse Ox 94 Pulse Rate (60-100) 94 Dyspnea Margo Scale (0-10) 0 Number of Rests Taken 0 6th minute Oxygen Delivery Method Room Air Pulse Ox 95 Pulse Rate (60-100) 95 Dyspnea Margo Scale (0-10) 0 Number of Rests Taken 0 Post-test Oxygen Delivery Method Room Air Pulse Ox 95 Pulse Rate (60-100) 92 Dyspnea Margo Scale (0-10) 0 Full Laps Walked 19 Partial Lap, Number of Tiles Walked 43 Total Distance Walked (ft) 1164 Interpretation Interpretation: The patient ambulated 1164 feet over the course of 6 minutes beginning on room air without assistive devices. Pretesting oxygen saturation was noted to be 96% on room air. With ambulation, the [place] oxygen saturation was 94%. There was no significant exertional oxygen desaturation. Recommendations Recommendations: There is no indication for the use of supplemental oxygen at this time.
== END | disposition home or self-care (01) ==
LOC: PSN 08:30
PROVIDERS: PCP Internal Medicine; Referring Provider Internal Medicine Critical Care Medicine; Visit Provider Internal Medicine Critical Care Medicine
DX: D75.1 Secondary polycythemia (principal)
CPT/HCPCS: 94618

== ENCOUNTER → 2023-06-28 | Outpatient (CLI) | payer OTHER, SELFPAY ==
--- NOTE | 2023-06-29 11:01 | PFT ---
INTRODUCTION: The patient is a 62-year-old male who presents for pulmonary function studies secondary to a diagnosis of polycythemia. Respiratory therapy reported good patient effort. Bronchodilators were used during testing. INTERPRETATION: Forced expiration spirometry demonstrates the presence of a mild large airways obstructive ventilatory defect. There was a significant response to aerosolized bronchodilators. Spirograms are of good quality and plateau gradually indicating slow emptying of the lungs. Body plethysmography was performed and revealed an elevated RV to 169% of predicted, indicative of underlying air trapping. Diffusing capacity by single breath CO was within normal limits. IMPRESSION: Partially reversible mild large airways obstructive ventilatory defect with associated air trapping.
== END | disposition home or self-care (01) ==
LOC: PSN 09:06
PROVIDERS: PCP Internal Medicine; Referring Provider Internal Medicine Critical Care Medicine; Visit Provider Internal Medicine Critical Care Medicine
DX: D75.1 Secondary polycythemia (principal)
CPT/HCPCS: 94060; 94726; 94729

== ENCOUNTER → 2023-08-10 | Outpatient (CLI) | payer OTHER, SELFPAY ==
--- NOTE | 2023-08-10 17:45 | CT_ITS ---
STUDY: LOW DOSE CT LUNG CANCER SCREENING REASON FOR EXAM: Male, 63 years old. h/o Tobacco Dependency RADIATION DOSAGE (If Supplied By Facility): CTDIvol = ( 3.02 ) mGy, DLP = ( 112.87 ) mGycm TECHNIQUE: No contrast was administered. Low dose technique was utilized (average mAS-38 and kVp 120). 1.25 mm axial source images with a slice interval of 1.25-mm were reconstructed in lung windows. 2.5 mm axial source images with a slice interval of 2.5-mm were reconstructed in lung windows. 5.0 mm axial source images with a slice interval of 5.0-mm were reconstructed in soft tissue windows. COMPARISON: None. Emphysema: Mild emphysema. No noncalcified nodule or mass. Endobronchial lesion: None Aorta: No aortic aneurysm. CORONARY ARTERIES: Coronary artery calcification is not seen. Heart: No cardiomegaly. Pulmonary artery: Normal Mediastinal nodes: Normal Other chest and abdominal findings: None CT/Low Dose CT Lung Screening IMPRESSION: Lung-RADS category 1 - Continue annual screening with LDCT in 12 months. IMPORTANT NOTES FOR USE: ACR Lung-RADS Version 1.1 Assessment Categories Release Date: 2018 Category: Coded 0-4 bases on nodule(s) with highest degree of suspicion. Negative screen is defined as categories 1 and 2; a positive screen is defined as categories 3 and 4. Category 3 and 4A nodules that are unchanged on interval CT should be coded as category 2, and individuals returned to screening in 12 months. Category 4X: Category 3 or 4 nodules with additional imaging findings that increase the suspicion of lung cancer, such as spiculation, GGN that doubles in size in 1 year, enlarged lymph notes, etc. Category Modifiers: S (significant finding unrelated to lung cancer) Electronically Signed: Julien Sheehan MD at 22:55 EST ,
== END | disposition home or self-care (01) ==
LOC: CT 17:43
PROVIDERS: PCP Internal Medicine; Referring Provider Internal Medicine Critical Care Medicine; Visit Provider Internal Medicine Critical Care Medicine
DX: F17.210 Nicotine dependence, cigarettes, uncomplicated (principal)
CPT/HCPCS: 71271

== ENCOUNTER → 2024-01-15 | Outpatient (CLI) | payer OTHER, SELFPAY ==
[2024-01-15 10:51] LABS: PSA,Total - Annual Screen 0.91 ng/mL (0.00-4.00)
== END | disposition home or self-care (01) ==
PROVIDERS: PCP Internal Medicine; Referring Provider Urology; Visit Provider Urology
DX: Z12.5 Encounter for screening for malignant neoplasm of prostate (principal)
CPT/HCPCS: 36415; 84153; G0103

== ENCOUNTER → 2024-04-22 | Outpatient (CLI) | payer OTHER, SELFPAY ==
[2024-04-22 15:33] LABS: Absolute Lymphocyte Count 1.57 X10^3/uL (0.83-4.51); Absolute Neutrophil Count 4.3 X10^3/uL (2.0-7.7); Basophil# 0.09 X10^3/uL; Basophil% 1.3 % (0-1); Eosinophil# 0.12 X10^3/uL; Eosinophils% 1.7 % (0-5); Hematocrit 48.2 % (40-54); Hemoglobin 15.8 g/dL (13.0-16.5); Lymphocyte # 1.57 X10^3/ul (0.83-4.51); Lymphocyte % 22.8 % (19-41); Mean Corp Hgb Conc 32.8 g/dL (32-36); Mean Corpuscular Hgb 30.3 pg (27.0-32.0); Mean Corpuscular Volume 92.3 fL (80-94); Mean Platelet Vol. 11.4 fl (6.2-12.0); Monocyte# 0.78 X10^3/uL; Monocyte% 11.3 % (0-10); NRBC Flagged by Analyzer 0 % (0-5); Neutrophil # 4.31 X10^3/uL (2.7-7.7); Neutrophil % 62.5 % (47-70); Platelet Count 162 K/mm3 (150-450); RBC Distribution Width SD 47.3 fl (35.1-43.9); Red Blood Count 5.22 M/mm3 (4.6-6.2); White Blood Count 6.9 K/mm3 (4.4-11.0)
[2024-04-22 16:06] LABS: Hemoglobin A1c 5.2 % (3.8-5.6)
[2024-04-22 16:47] LABS: Vitamin B12 258 pg/mL (211-911)
[2024-04-22 16:48] LABS: ALB/GLOB Ratio 1.1 RATIO (0.9-2.4); AST(SGOT) 17 U/L (15-37); Alanine Aminotransfer ALT/SGPT 21 U/L (16-61); Albumin, Serum 3.4 g/dL (3.2-5.0); Alkaline Phosphatase 125 U/L (45-117); Anion Gap 1 (5-15); BUN 17 mg/dL (7-18); BUN/Creat Ratio 14.3 RATIO (10-20); Calcium,Total 8.8 mg/dL (8.5-10.1); Chloride 108 mmol/L (98-107); Cholesterol 124 mg/dL (200); Creatinine, Serum 1.19 mg/dL (0.70-1.30); EST Glomerular Filtration Rate 66 mL/min (>60); Est Glom Filt Rate - Afr Amer 80 mL/min (>60); Globulin 3.1 g/dL (2.2-4.2); Glucose 114 mg/dL (74-106); High Density Lipoprotein 40 mg/dL; Potassium 3.8 mmol/L (3.5-5.1); Protein, Total 6.5 g/dL (6.4-8.2); Sodium Level 140 mmol/L (136-145); Triglycerides 164 mg/dL; Very Low Density Lipoprotein 33 mg/dL (5-40)
== END | disposition home or self-care (01) ==
LOC: BIMLAB 14:28
PROVIDERS: PCP Internal Medicine; Referring Provider Nurse Practitioner; Visit Provider Nurse Practitioner
DX: Z00.00 Encounter for general adult medical examination without abnormal findings (principal); D75.1 Secondary polycythemia; Q38.2 Macroglossia; N40.0 Benign prostatic hyperplasia without lower urinary tract symptoms
CPT/HCPCS: 36415; 80053; 80061; 82607; 83036; 85025

== ENCOUNTER → 2024-05-13 | Outpatient (CLI) | payer OTHER, SELFPAY ==
--- NOTE | 2024-05-13 07:39 | ART_ITS ---
Reason For Study: BLE PAin Procedure A bilateral lower extremity continuous wave Doppler with analog waveform analysis and ankle brachial indexes. Left Segmental Pressures Left brachial= 143mmHg. Left posterior tibial artery = 178mmHg. Left dorsalis pedis artery = 163mmHg. The left posterior tibial artery waveforms are triphasic. The left dorsalis pedis waveforms are triphasic. Right Segmental Pressures Right brachial= 151mmHg. Right posterior tibial artery = 173mmHg. Right dorsalis pedis artery = 159mmHg. The right posterior tibial artery waveforms are triphasic. The right dorsalis pedis waveforms are triphasic. Indices The right ankle brachial index by the posterior tibial artery is 1.15. The right ankle brachial index by the dorsalis pedis is 1.05. The left ankle brachial index by the posterior tibial artery is 1.18. The left ankle brachial index by the dorsalis pedis is 1.08. VL/Ankle Brachial Index Interpretation Summary Triphasic Doppler waveforms are noted at ankle level bilaterally. Pulse-volume recordings appear satisfactory at ankle level bilaterally. Resting ankle-brachial indices are nor mal bilaterally. There is no evidence of significant arterial occlusive disease in the lower ext remities bilaterally. Ordering Physician: Liseth Hernandez Referring Physician: Liseth Hernandez [employer] DEPARTMENT CHIEF LIBRARIAN Performed By: Elias Rocha RVT
== END | disposition home or self-care (01) ==
PROVIDERS: PCP Internal Medicine; Referring Provider Nurse Practitioner; Visit Provider Nurse Practitioner
DX: M79.604 Pain in right leg (principal); M79.605 Pain in left leg
CPT/HCPCS: 93922

== ENCOUNTER → 2024-05-30 | Outpatient (CLI) | payer OTHER, SELFPAY ==
--- NOTE | 2024-05-30 14:07 | CT_ITS ---
STUDY: CT ABDOMEN AND PELVIS WITHOUT CONTRAST REASON FOR EXAM: Male, 63 years old. 2 day history of left flank pain. RADIATION DOSAGE (If Supplied By Facility): CTDIvol = ( 14.34 ) mGy, DLP = ( 698.66 ) mGycm TECHNIQUE: Transaxial images were obtained from the dome of the diaphragm to the symphysis pubis without oral contrast, and without intravenous contrast. Sagittal and coronal images were reconstructed. Individualized dose optimization techniques were used for this CT. COMPARISON: Comparison is made with prior study July 09, 2021. FINDINGS: The visualized lung bases are unremarkable. The visualized portions of the heart are within normal limits. Normal liver. Mildly distended gallbladder. Normal spleen. Normal pancreas. Normal bilateral adrenal glands. There is a 2.5 cm x 2.2 cm cyst in the posterior medial aspect of the right kidney. Normal left kidney. Normal visualized stomach. Normal small intestine. There are multiple colonic diverticula consistent with diverticulosis. The appendix is visualized and appears normal. There is scattered atherosclerotic calcification of the abdominal aorta, without a demonstrated aneurysm. Normal inferior vena cava. Normal retroperitoneum. Normal urinary bladder. There are prostatic calcifications. Small bilateral inguinal hernias containing fat. There are degenerative changes of the visualized lumbar spine. CT/Abdomen/Pelvis without Cont IMPRESSION: Mild distention of the gallbladder lumen. Sigmoid diverticulosis. No obstructive uropathy is seen. Electronically Signed: Nicolas Cooper MD at 14:36 EDT ,
== END | disposition home or self-care (01) ==
LOC: CT 14:03
PROVIDERS: PCP Internal Medicine; Referring Provider Urology; Visit Provider Urology
DX: R10.84 Generalized abdominal pain (principal); Z87.442 Personal history of urinary calculi
CPT/HCPCS: 74176

== ENCOUNTER → 2024-08-17 | Outpatient (CLI) | payer OTHER, SELFPAY | END | disposition home or self-care (01) | LOC: CT 09:01 | PROVIDERS: PCP Internal Medicine; Referring Provider Nurse Practitioner Acute Care; Visit Provider Nurse Practitioner Acute Care | DX: F17.210 Nicotine dependence, cigarettes, uncomplicated (principal) | CPT/HCPCS: 71271 ==

== ENCOUNTER → 2024-12-11 | Outpatient (CLI) | payer OTHER, SELFPAY | END | disposition home or self-care (01) | LOC: PSN 12:32 | PROVIDERS: PCP Internal Medicine; Referring Provider Nurse Practitioner Family; Visit Provider Nurse Practitioner Family | DX: J43.2 Centrilobular emphysema (principal) | CPT/HCPCS: 94060; 94726; 94729 ==

== ENCOUNTER → 2024-12-12 | Outpatient (CLI) | payer OTHER, SELFPAY ==
[2024-12-12 12:45] VITALS: PULSE 62; PULSE 66; PULSE 71; PULSE 73; PULSE 77; PULSE 78; PULSE 80; O2SAT 94; O2SAT 95; O2SAT 96; O2SAT 97
--- NOTE | 2024-12-18 11:17 | PCM.PSN.6M ---
PSN 6 Minute Walk Test 6 Minute Walk Test 6 Minute Walk Test: 6 Minute Walk Test PSN:6-Minute Walk Test Start: 12/12/24 12:59 Freq: Status: Active Protocol: RESP.6MINW Document 12/12/24 12:45 [facility] (Rec: 12/12/24 13:03 [facility] [id number]) 6 Minute Walk Test Date Performed 12/12/24 Time Performed 12:45 Height 5 ft 11 in Weight: 226 lb Weight in Pounds 226.[address]: Isela Assistive device None used: Pre-test Oxygen Delivery Room Air Method Pulse Ox (%) 96 Pulse Rate (60-100 62 beats/min) Dyspnea Margo Scale ( 0 0-10) 1st minute Oxygen Delivery Room Air Method Pulse Ox (%) 95 Pulse Rate (60-100 80 beats/min) 2nd minute Oxygen Delivery Room Air Method Pulse Ox (%) 94 Pulse Rate (60-100 71 beats/min) 3rd minute Oxygen Delivery Room Air Method Pulse Ox (%) 94 Pulse Rate (60-100 73 beats/min) 4th minute Oxygen Delivery Room Air Method Pulse Ox (%) 95 Pulse Rate (60-100 77 beats/min) 5th minute Oxygen Delivery Room Air Method Pulse Ox (%) 94 Pulse Rate (60-100 78 beats/min) 6th minute Oxygen Delivery Room Air Method Pulse Ox (%) 95 Pulse Rate (60-100 77 beats/min) Dyspnea Margo Scale ( 0 0-10) Exertion Margo Scale 9 (6-20) Post-test Oxygen Delivery Room Air Method Pulse Ox (%) 97 Pulse Rate (60-100 66 beats/min) Full Laps Walked 18 Partial Lap, Number 41 of Tiles Walked Total Distance 1103 Walked (ft) Interpretation Interpretation: The patient ambulated 1103 feet over the course of 6 minutes beginning on room air without assistive devices. Pretesting oxygen saturation was noted to be 96% on room air. With ambulation, the [place] oxygen saturation was 94%. There was no significant exertional oxygen desaturation. Recommendations Recommendations: There is no indication for the use of supplemental oxygen at this time.
== END | disposition home or self-care (01) ==
LOC: PSN 12:42
PROVIDERS: PCP Internal Medicine; Referring Provider Nurse Practitioner Family; Visit Provider Nurse Practitioner Family
DX: J43.2 Centrilobular emphysema (principal)
CPT/HCPCS: 94618

== ENCOUNTER → 2025-01-13 | Outpatient (CLI) | payer OTHER, SELFPAY | END | disposition home or self-care (01) | LOC: LAB 08:54 | PROVIDERS: PCP Internal Medicine; Referring Provider Urology; Visit Provider Urology | DX: Z12.5 Encounter for screening for malignant neoplasm of prostate (principal) | CPT/HCPCS: 36415; 84153; G0103 ==